=== PATIENT | female | born 1980 | race African-American/Black ===

== ENCOUNTER 2017-05-01 18:52 | Emergency (ER) | payer OTHER ==
[~2017-05-01] VITALS: Ht 180.3 cm; Wt 127.5 kg
[2017-05-01 19:20] VITALS: BP 113/85
[2017-05-01] MEDS ORDERED: oxyCODONE HCL/Acetaminophen 5/325mg ORAL ONE (19:45)
[2017-05-01] MEDS ORDERED: TYLENOL EXTRA500 MG ORAL (20:42)
--- NOTE | 2017-05-01 20:42 | Emergency Room Report ---
History of Present Illness General Chief Complaint: Lower Extremity Injury Source: Patient Present Illness HPI 36-year-old female presents to the emergency department complaining of 10 out of 10 in severity pain to the anterior left knee in addition to the lateral left ankle status post mechanical fall down 4 stairs approximately 4 hours ago. Patient reports history of having her left knee intermittently "give out on her and patient states that all morning she felt as though her legs may give out , then it finally did. Patient denies feeling of instability in the knee at this time. Patient reports some swelling to both the knee and ankle. She denies bruising she denies hitting her head or loss of consciousness. Patient states pain is exacerbated upon walking. Denies numbness tingling or loss of sensation or gross motor movements of the extremities, incontinence of bowel or bladder. Denies CP, Palpitations, LOC, AMS, dizziness, Changes in Vision, Sensation, paresthesias, or a sudden severe headache. Allergies: Coded Allergies: ASPIRIN (Verified Allergy, Unknown, 05/01/17) IBUPROFEN (Verified Allergy, Unknown, 05/01/17) PENICILLINS (Verified Allergy, Unknown, 05/01/17) Patient History Past Medical History: see triage record Past Surgical History: none Pertinent Family History: none Last Menstrual Period: 04/02/17 Now: No Reviewed Nursing Documentation: PMH: Agreed, PSxH: Agreed Nursing Documentation-PMH Hx Hypertension: Yes Hx Asthma: Yes Hx COPD: Yes Hx Seizures: Yes Review of Systems All Other Systems: negative except mentioned in HPI Physical Exam Vital Signs Date Time Temp Pulse Resp B/P (MAP) Pulse Ox O2 Delivery O2 Flow Rate FiO2 05/01/17 19:03 98.2 96 16 113/85 100 Room Air Sp02 EP Interpretation: reviewed, normal General Appearance: no apparent distress, alert, GCS 15, non-toxic Head: normocephalic, atraumatic Eyes: bilateral eye normal inspection, bilateral eye PERRL ENT: hearing grossly normal, normal voice Neck: full range of motion Respiratory: lungs clear, normal breath sounds, speaking full sentences Cardiovascular #1: regular rate, rhythm, normal capillary refill Rectal: deferred Genitourinary: normal inspection, no CVA tenderness Musculoskeletal: back normal, gait/station normal, normal range of motion, tender - TTP to the anteror left knee, and lateral left ankle, there is ttp to the dorsal alteral aspect of the left foot with some soft tissue swelling. all affected joints have FROM, no increased laxity to the ligaments of the knee. Neurologic: alert, oriented x3, responsive, motor strength/tone normal, sensory intact, speech normal Skin: normal color, no rash, warm/dry, well hydrated Lymphatic: no adenopathy Medical Decision Making SHIMA Attanurag Cox is my supervising Physician whom patient management has been discussed with. Diagnostic Impression: Primary Impression: Left ankle sprain Qualified Codes: S93.402A - Sprain of unspecified ligament of left ankle, initial encounter Additional Impression: Knee effusion, left ER Course 36-year-old female presents to the emergency department complaining of 10 out of 10 in severity pain to the anterior left knee in addition to the lateral left ankle status post mechanical fall down 4 stairs approximately 4 hours ago. Patient reports history of having her left knee intermittently "give out on her and patient states that all morning she felt as though her legs may give out , then it finally did. Patient denies feeling of instability in the knee at this time. Patient reports some swelling to both the knee and ankle. She denies bruising she denies hitting her head or loss of consciousness. Patient states pain is exacerbated upon walking. Denies numbness tingling or loss of sensation or gross motor movements of the extremities, incontinence of bowel or bladder. Denies CP, Palpitations, LOC, AMS, dizziness, Changes in Vision, Sensation, paresthesias, or a sudden severe headache. Ddx considered but are not limited to Fracture, dislocation, contusion, Sprain/ Strain/Spasm. Vital signs: are WNL, pt. is afebrile H&PE are most consistent with musculoskeletal injury will perform imaging to r/ o fractures/dislocations. - no increased laxity of the knee joint on physical exam. no obvious deformities other than soft tissue swelling noted on physical exam. ORDERS: - X-ray Left knee 3 views - positive for knee effusion. Negative for fx, Dislocation, or significant soft tissue injury, per preliminary read in ED, and signed by SHIMA Johnson, my supervising physician has reviewed, and agrees with my interpretation. - X-ray Left Ankle 3 views - Negative for fx, Dislocation, or significant soft tissue injury, per preliminary read in ED, and signed by SHIMA Johnson , my supervising physician has reviewed, and agrees with my interpretation - X-ray Left Foot 3 views - Negative for fx, Dislocation, or significant soft tissue injury, per preliminary read in ED, and signed by SHIMA Johnson , my supervising physician has reviewed, and agrees with my interpretation ED INTERVENTIONS: Adriano wrap applied to the left ankle by timber management technician. Pt. remains neurovascularly intact. - Adriano Wrap applied to the left knee by timber management technician. Pt. remains neurovascularly intact. -Patient is provided with crutches and instructed on their use DISCHARGE: At this time pt. is stable for d/c to home. Will provide printed patient care instructions, and any necessary prescriptions. Care plan and follow up instructions have been discussed with the patient prior to discharge. Other X-Ray Diagnostic Results Other X-Ray Diagnostic Results #1: X-Ray ordered: Left Knee # of Views/Limited Vs Complete: 3 View Indication: Pain EP Interpretation: Yes PA Xray: Interpretation reviewed, by supervising MD, and agrees with findings. Interpretation: no dislocation, no soft tissue swelling, other - mild effusion Impression: Other - mild effusion otherwise unremarkable Electronically Signed by: Faith Johnson PA-C Other X-Ray Diagnostic Results #2: X-Ray ordered: Left ankle # of Views/Limited Vs Complete: 3 View Indication: Pain EP Interpretation: Yes PA Xray: Interpretation reviewed, by supervising MD, and agrees with findings. Interpretation: no dislocation, no soft tissue swelling, no fractures Impression: No acute disease Electronically Signed by: Faith Johnson PA-C Other X-Ray Diagnostic Results #3: X-Ray ordered: Left Foot # of Views/Limited Vs Complete: 3 View Indication: Pain EP Interpretation: Yes PA Xray: Interpretation reviewed, by supervising MD, and agrees with findings. Interpretation: no dislocation, no soft tissue swelling, no fractures Impression: No acute disease Electronically Signed by: Faith Johnson PA-C Last Vital Signs Date Time Temp Pulse Resp B/P (MAP) Pulse Ox O2 Delivery O2 Flow Rate FiO2 05/01/17 19:03 98.2 96 16 113/85 100 Room Air Disposition: HOME, SELF-CARE Condition: Stable Scripts [Cast Shoe] No Conflict Check [facility], #1 Prov: Faith Johnson P.Joe 05/01/17 Acetaminophen* (TYLENOL EXTRA STRENGTH*) 500 Mg Tablet 500 MG ORAL Q6H, #30 TAB 0 Refills Prov: Faith Johnson 05/01/17 Referrals: [facility]ERR[facility] (PCP) Patient Instructions: Ankle Sprain, Knee Effusion, [id number] Additional Instructions: Take medications as directed. Follow up with a Primary Care Provider in 3-5 days, even if your symptoms have resolved. --Please review list of primary care clinics, if you do not already have a primary care provider Return sooner to ED if new symptoms occur, or current symptoms become worse. - Please note that this Emergency Department Report was dictated using [employer] operator technology software, occasionally this can lead to erroneous entry secondary to interpretation by the dictation equipment. Faith Johnson May 01, 2017 20:42
[2017-05-01] MEDS ORDERED: [UNRECOGNIZED DRUG - SUPPLY] MC (20:55)
[2017-05-01 21:10] VITALS: BP 113/85
--- NOTE | 2017-05-02 09:48 | Diagnostic Imaging Report ---
Indication: Reason For Exam: PAIN Technique: XRAY Knee 3v L Comparison: None. Findings: The osseous structures are intact. There is no fracture or destruction. The visualized joints are normal. The soft tissues are unremarkable. Impression: Normal.
--- NOTE | 2017-05-02 09:49 | Diagnostic Imaging Report ---
Indication: Reason For Exam: PAIN Technique: XRAY Foot Complete L Comparison: None. Findings: Bones are intact. No fracture. No evidence of bone destruction. There are 2 exostoses on the fifth metatarsal. Impression: Exostoses of the fifth metatarsal. Otherwise negative.
--- NOTE | 2017-05-02 09:50 | Diagnostic Imaging Report ---
Indication: Reason For Exam: PAIN Technique: XRAY Ankle Compl Min 3v L Comparison: None. Findings: The osseous structures are intact. There is no fracture or destruction. The visualized joints are normal. The soft tissues are unremarkable. There are exostoses on the fifth metatarsal. Impression: Exostoses of the fifth metatarsal. Otherwise negative.
== END 2017-05-01 21:10 | disposition home or self-care (01) ==
LOC: EMR 19:35
DX: S93.402A Sprain of unspecified ligament of left ankle, initial encounter (principal); W10.9XXA Fall (on) (from) unspecified stairs and steps, initial encounter; Y92.9 Unspecified place or not applicable; M25.462 Effusion, left knee; I10 Essential (primary) hypertension; J44.9 Chronic obstructive pulmonary disease, unspecified; M89.9 Disorder of bone, unspecified; Z88.6 Allergy status to analgesic agent; Z88.0 Allergy status to penicillin
CPT/HCPCS: 99284

== ENCOUNTER 2017-09-02 19:19 | Emergency (ER) | payer OTHER ==
[~2017-09-02] VITALS: Ht 180.3 cm; Wt 136.1 kg
[~2017-09-02 19:19] MED LIST: TYLENOL EXTRA500 MG ORAL; [UNRECOGNIZED DRUG - SUPPLY] MC
[2017-09-02 20:15] VITALS: BP 142/96
--- NOTE | 2017-09-02 20:35 | Emergency Room Report ---
History of Present Illness General Chief Complaint: Sore Throat Source: Patient Present Illness HPI 37-year-old female presents to the emergency department complaining of 9 out of 10 in severity sore throat with bilateral lymph node swelling. Patient reports that she has been having testing done due to anterior cervical lymphadenopathy that is been causing multiple episodes of sore throat and swelling intermittently times one year. Patient states that her PCP did not give her any medication for pain and she is currently awaiting approval of her CAT scan referral. Patient denies fevers, chills, difficulty breathing. Patient reports vomiting times one day and difficulty keeping down fluids. Patient denies abdominal pain or tenderness. Patient denies and states that "" she is dating a woman ". Patient states that she has only been taking Tylenol for her pain which provides little relief. Patient states that she has had several rounds of antibiotics and that she has very severe allergies as well as asthma. Patient reports that some of the workup her PCP has done is laboratory work, HIV testing, and allergy testing. She denies night sweats or significant changes in weight more than 10 pounds. denies joint pain. Pt. was recently rx'd Glucophage for weight loss. Denies wheezing, swelling of the lips or tongue. Denies CP, Palpitations, LOC, AMS, dizziness, Changes in Vision , Sensation, paresthesias, or a sudden severe headache. Allergies: Coded Allergies: ASPIRIN (Verified Allergy, Unknown, 09/02/17) IBUPROFEN (Verified Allergy, Unknown, 09/02/17) PENICILLINS (Verified Allergy, Unknown, 09/02/17) Patient History Past Medical History: see triage record, other - sialoadenitis- chronic, moderate allergies, Asthma/COPD. . Past Surgical History: none Pertinent Family History: none Last Menstrual Period: now Now: No Immunizations: UTD Reviewed Nursing Documentation: PMH: Agreed; PSxH: Agreed Nursing Documentation-PMH Past Medical History: No History, Except For Hx Hypertension: Yes Hx Asthma: Yes Hx COPD: Yes Hx Seizures: Yes Review of Systems All Other Systems: negative except mentioned in HPI Physical Exam Vital Signs Date Time Temp Pulse Resp B/P (MAP) Pulse Ox O2 Delivery O2 Flow Rate FiO2 09/02/17 20:00 98.2 86 16 142/96 96 Room Air 98.2 Sp02 EP Interpretation: reviewed, normal General Appearance: alert, GCS 15, non-toxic, mild distress Head: normocephalic, atraumatic Eyes: bilateral eye normal inspection, bilateral eye PERRL ENT: hearing grossly normal, normal pharynx - no exudates no erythema, no sublingual tenderness, normal voice, uvula midline, moist mucus membranes, other - no trismus, no FLAG FOOTBALL COACH. Pt. able to swallow, not drooling. Neck: full range of motion, no meningismus, no bony tend, other - LAD bilaterally to the subparotid nodes Respiratory: chest non-tender, lungs clear, normal breath sounds, no respiratory distress, no wheezing, speaking full sentences Cardiovascular #1: regular rate, rhythm Gastrointestinal: normal bowel sounds, non tender, soft Rectal: deferred Genitourinary: normal inspection Musculoskeletal: back normal, gait/station normal, normal range of motion, non- tender Neurologic: alert, oriented x3, responsive, motor strength/tone normal, sensory intact, speech normal, grossly normal Psychiatric: judgement/insight normal Skin: normal color, no rash, warm/dry, well hydrated Medical Decision Making PA Attestation Dr. Ferreira is my supervising Physician whom patient management has been discussed with. Diagnostic Impression: Primary Impression: Lymphadenopathy ER Course 37-year-old female presents to the emergency department complaining of 9 out of 10 in severity sore throat with bilateral lymph node swelling. Patient reports that she has been having testing done due to anterior cervical lymphadenopathy that is been causing multiple episodes of sore throat and swelling intermittently times one year. Patient states that her PCP did not give her any medication for pain and she is currently awaiting approval of her CAT scan referral. Patient denies fevers, chills, difficulty breathing. Patient reports vomiting times one day and difficulty keeping down fluids. Patient denies abdominal pain or tenderness. Patient denies and states that "" she is dating a woman ". Patient states that she has only been taking Tylenol for her pain which provides little relief. Patient states that she has had several rounds of antibiotics and that she has very severe allergies as well as asthma. Patient reports that some of the workup her PCP has done is laboratory work, HIV testing, and allergy testing. She denies night sweats or significant changes in weight more than 10 pounds. denies joint pain. Pt. was recently rx'd Glucophage for weight loss. Denies wheezing, swelling of the lips or tongue. Denies CP, Palpitations, LOC, AMS, dizziness, Changes in Vision , Sensation, paresthesias, or a sudden severe headache. Ddx considered but are not limited to: pharyngitis, strep, FLAG FOOTBALL COACH, ludwigs angina, URI, chronic LAD, MONO, lymphoma, autoimmune disorder just to name a few. Vital signs: are WNL, pt. is afebrile H&PE are most consistent with: lymphadenopathy with sore throat, non-infectious in appearance. - pt has had multiple rounds of abx for her symptoms with no improvement, I do not see continued doses to be of benefit to her. - With current presentation and chronicity of symptoms, I do not suspect impending airway compromise. ORDERS: -Urine : Negative ED INTERVENTIONS: - Zofran PO - IM Solumedrol -Percocet PO. patient is able to tolerate oral fluids, she reports that her symptoms are improving with the above interventions. Discussed with patient to contact her PCP to let him know that she visited the ER regarding her symptoms. Encouraged patient to get a CT scan. Gave patient strict ED return precautions for worsening or new symptoms. DISCHARGE: At this time pt. is stable for d/c to home. Will provide printed patient care instructions, and any necessary prescriptions. Care plan and follow up instructions have been discussed with the patient prior to discharge. Labs Test 09/02/17 21:20 Urine HCG, Qualitative Negative (NEGATIVE) Last Vital Signs Date Time Temp Pulse Resp B/P (MAP) Pulse Ox O2 Delivery O2 Flow Rate FiO2 09/02/17 20:00 98.2 86 16 142/96 96 Room Air 98.2 Disposition: HOME, SELF-CARE Condition: Stable Scripts Ondansetron Odt* (ZOFRAN ODT*) 4 Mg Tab.rapdis 4 MG ORAL Q6H PRN for Nausea & Vomiting, #20 TAB Prov: Faith Johnson P.AJose 09/02/17 Lidocaine HCl 2% Viscous (Lidocaine HCl 2% Viscous) 100 Ml Solution 10 ML ORAL QID, #200 ML Prov: Faith Johnson P.AJose 09/02/17 Hydrocodone Bit/Acetaminophen 7.5-325* (NORCO 7.5-325*) 1 Each Tablet 1 TAB ORAL Q6H PRN for For Pain, #6 TAB 0 Refills Prov: Faith Johnson 09/02/17 Prednisone* (PREDNISONE*) 20 Mg Tablet 40 MG ORAL DAILY for 3 Days, #6 TAB Prov: Faith Johnson 09/02/17 Patient Instructions: Lymphadenopathy, Sore Throat Additional Instructions: Take medications as directed. --- CT imaging as referred by her primary care provider is of high priority. --Recommend rheumatology evaluation to rule out autoimmune disorder. Follow up with a Primary Care Provider in 3-5 days, even if your symptoms have resolved. Return sooner to ED if new symptoms occur, or current symptoms become worse. Do not drink alcohol, drive, or operate heavy machinery while taking norco as this may cause drowsiness. - Please note that this Emergency Department Report was dictated using [employer] collection associate technology software, occasionally this can lead to erroneous entry secondary to interpretation by the dictation equipment. Faith Johnson Sep 02, 2017 20:35
[2017-09-02] MEDS ORDERED: oxyCODONE HCL/Acetaminophen 5/325mg ORAL ONE (20:45)
[2017-09-02] MEDS ORDERED: Solu-MEDROL 125mg Inj IM SCH (20:45)
[2017-09-02 21:25] VITALS: BP 142/96
[2017-09-02] MEDS ORDERED: NORCO 7.5-3251 EACH ORAL (21:53)
[2017-09-02] MEDS ORDERED: LIDOCAINE VISC100 ML ORAL (21:53)
[2017-09-02] MEDS ORDERED: PREDNISONE20 MG ORAL (21:53)
[2017-09-02] MEDS ORDERED: ZOFRAN ODT4 MG ORAL (21:54)
== END 2017-09-02 22:10 | disposition home or self-care (01) ==
LOC: EMR 20:51
DX: R59.1 Generalized enlarged lymph nodes (principal); J44.9 Chronic obstructive pulmonary disease, unspecified; J45.909 Unspecified asthma, uncomplicated; I10 Essential (primary) hypertension; Z88.6 Allergy status to analgesic agent; Z88.0 Allergy status to penicillin
CPT/HCPCS: 81025; 96372; 99284; J2930

== ENCOUNTER 2018-01-14 00:14 | Emergency (ER) | payer OTHER ==
[~2018-01-14] VITALS: Ht 180.3 cm; Wt 118.4 kg
[~2018-01-14 00:14] MED LIST changes: +LIDOCAINE VISC100 ML ORAL; +NORCO 7.5-3251 EACH ORAL; +PREDNISONE20 MG ORAL; +ZOFRAN ODT4 MG ORAL
[2018-01-14 00:50] VITALS: BP 118/83
[2018-01-14] MEDS ORDERED: Dexamethasone 4mg/ml vial IVP ONE (01:00)
[2018-01-14] MEDS ORDERED: DiphenhydrAMINE 50mg/ml Inj IVP ONE (01:00)
--- NOTE | 2018-01-14 01:08 | Emergency Room Report ---
History of Present Illness General Chief Complaint: General Complaint Source: Patient, Family Member, Medical Record Present Illness HPI This a 37-year-old female who was recently diagnosed with lupus. She presents with chief complaint of swelling and welts and her body. She also has a history of allergies which is severe. She is allergic to practically everything on the past. Onset tonight. Itching. Currently on her second packet of Medrol Dosepak. No rest or complaint. Unknown etiology. Denies any other complaints. Allergies: Coded Allergies: ASPIRIN (Verified Allergy, Unknown, 09/02/17) IBUPROFEN (Verified Allergy, Unknown, 09/02/17) PENICILLINS (Verified Allergy, Unknown, 09/02/17) Patient History Past Medical History: see triage record, old chart reviewed, HTN Past Surgical History: other Pertinent Family History: none Social History: Denies: smoking Last Menstrual Period: Dec Now: No Immunizations: other Reviewed Nursing Documentation: PMH: Agreed; PSxH: Agreed Nursing Documentation-PMH Hx Hypertension: Yes Hx Asthma: Yes Hx COPD: Yes Hx Seizures: Yes Review of Systems Eye: Reports: other - swelling; Denies: eye pain, blurred vision ENT: Denies: ear pain, nose congestion, throat swelling Respiratory: Denies: cough, shortness of breath Cardiovascular: Denies: chest pain, palpitations Gastrointestinal: Denies: abdominal pain, diarrhea, nausea, vomiting Musculoskeletal: Denies: back pain, joint pain Skin: Reports: rash Neurological: Denies: headache, numbness Endocrine: Denies: increased thirst, increased urine Hematologic/Lymphatic: Denies: easy bruising All Other Systems: negative except mentioned in HPI Physical Exam Vital Signs Date Time Temp Pulse Resp B/P (MAP) Pulse Ox O2 Delivery O2 Flow Rate FiO2 01/14/18 00:20 98.0 112 16 118/83 96 Room Air 98.1 vitals normal Sp02 EP Interpretation: reviewed, normal General Appearance: well appearing, no apparent distress, alert Head: normocephalic, atraumatic Eyes: bilateral eye PERRL, bilateral eye EOMI, bilateral eye other - puffiness to the eyelids. ENT: hearing grossly normal, normal pharynx Neck: full range of motion, supple, no meningismus Respiratory: chest non-tender, lungs clear, normal breath sounds Cardiovascular #1: regular rate, rhythm, no murmur Gastrointestinal: normal bowel sounds, non tender, no mass, no organomegaly, no bruit, non-distended Musculoskeletal: back normal, gait/station normal, normal range of motion Neurologic: alert, oriented x3 Psychiatric: mood/affect normal Skin: warm/dry, other - better urticaria on torso Medical Decision Making Diagnostic Impression: Primary Impression: Allergic reaction Qualified Codes: T78.40XA - Allergy, unspecified, initial encounter ER Course Patient with allergic reaction. Unknown etiology. No respiratory complaint. No tongue edema. Better after meds. Last Vital Signs Date Time Temp Pulse Resp B/P (MAP) Pulse Ox O2 Delivery O2 Flow Rate FiO2 01/14/18 00:50 98.1 16 118/83 96 Room Air 98.1 01/14/18 00:20 112 Status: improved Disposition: HOME, SELF-CARE Condition: Stable Scripts Diphenhydramine Hcl* (BENADRYL*) 25 Mg Capsule 50 MG ORAL Q6H PRN for Itching, #30 CAP Prov: MARTINEZ ACOSTA M.D. 01/14/18 Referrals: [facility] (PCP) Additional Instructions: Continue with your steroid pack. Follow-up with your DrJose in 2-3 days for recheck. Keep your appointment with your control room technician. You may benefit from a referral to see an director of teaching and learning. Return if symptom worsen. MARTINEZ ACOSTA M.D. Jan 14, 2018 01:08
[2018-01-14] MEDS ORDERED: BENADRYL25 MG ORAL (01:09)
[2018-01-14 01:36] VITALS: BP 112/77
== END 2018-01-14 01:36 | disposition home or self-care (01) ==
LOC: EMR 00:51
DX: T78.40XA Allergy, unspecified, initial encounter (principal); X58.XXXA Exposure to other specified factors, initial encounter; I10 Essential (primary) hypertension; J44.9 Chronic obstructive pulmonary disease, unspecified
CPT/HCPCS: 96361; 96374; 96375; 99284; J1100; J1200; S0028

== ENCOUNTER 2018-07-23 15:55 | Emergency (ER) | payer OTHER ==
[~2018-07-23] VITALS: Ht 180.3 cm; Wt 134.7 kg
[~2018-07-23 15:55] MED LIST changes: +BENADRYL25 MG ORAL
[2018-07-23 16:13] VITALS: BP 115/81
--- NOTE | 2018-07-23 16:16 | NUR ---
ED Nurse Note: pt walked in to ED due to flu like sx for 1 week. pt c/o bodyache, chills and cough. respirations even and non-labored noted. breath sounds clear. no fever at the triage. skin warm to touch. will wait for the further order.
--- NOTE | 2018-07-23 16:29 | Emergency Room Report ---
History of Present Illness General Chief Complaint: Flu Like Symptoms Source: Patient Present Illness HPI 38-year-old female with significant history of SLE currently treated by social service director here complaining of one week of pain and pressure in his sinuses and throat. Patient further complains of dry cough and chills as well as body aches. Patient is asking for pain medication. Denies abdominal pain, nausea vomiting, syncope, chest pain, palpitation, diarrhea and constipation.denies abdominal pain, nausea vomiting, SOB, chest pain, palpitation, diarrhea constipation. Saw her social service director last 1 month ago and is currently being treated with injections for pain Patient saw a social service director last 1 month ago and is currently being treated with injections for pain Allergies: Coded Allergies: ASPIRIN (Verified Allergy, Unknown, 09/02/17) IBUPROFEN (Verified Allergy, Unknown, 09/02/17) PENICILLINS (Verified Allergy, Unknown, 09/02/17) Patient History Past Medical History: see triage record Past Surgical History: unable to obtain Pertinent Family History: none Last Menstrual Period: 07/13/2018 Now: No Reviewed Nursing Documentation: PMH: Agreed; PSxH: Agreed Nursing Documentation-PMH Past Medical History: No History, Except For Hx Hypertension: Yes - RA Hx Asthma: Yes Hx COPD: Yes Hx Diabetes: Yes - Borderline DM Hx Cancer: No Hx Gastrointestinal Problems: No Hx Dialysis: No History Of Psychiatric Problem: No Hx Neurological Problems: No Hx Seizures: Yes Review of Systems All Other Systems: negative except mentioned in HPI Physical Exam Vital Signs Date Time Temp Pulse Resp B/P (MAP) Pulse Ox O2 Delivery O2 Flow Rate FiO2 07/23/18 16:02 98.4 99 16 115/81 98 Room Air Sp02 EP Interpretation: reviewed, normal General Appearance: normal inspection, well appearing, no apparent distress, alert Head: normocephalic, atraumatic Eyes: bilateral eye normal inspection, bilateral eye PERRL ENT: no angioedema, normal voice, uvula midline, moist mucus membranes, pharyngeal erythema, other - Maxillary sinus tender to palpationmaxillary sinus tenderness to palpation Neck: normal inspection, full range of motion, supple Respiratory: normal inspection, chest non-tender, lungs clear, no rhonchi, no wheezing Cardiovascular #1: normal inspection, regular rate, rhythm, no gallop, no murmur Gastrointestinal: normal inspection, soft Musculoskeletal: normal inspection, back normal Psychiatric: normal inspection, judgement/insight normal Skin: normal inspection, normal color, no rash, warm/dry Lymphatic: normal inspection, no adenopathy Medical Decision Making PA Attestation Diagnosis treatment plans and treatment plan reviewed and discussed with my supervising physician Dr. Horn Diagnostic Impression: Primary Impression: Sinusitis ER Course 38-year-old female with significant history of SLE currently treated by social service director here complaining of one week of pain and pressure in his sinuses and throat. Patient further complains of dry cough and chills as well as body aches. Patient is asking for pain medication. Denies abdominal pain, nausea vomiting, syncope, chest pain, palpitation, diarrhea and constipation.denies abdominal pain, nausea vomiting, SOB, chest pain, palpitation, diarrhea constipation. Saw her social service director last 1 month ago and is currently being treated with injections for pain Patient saw a social service director last 1 month ago and is currently being treated with injections for pain Ddx considered but are not limited to sinusitis, bronchitis, laryngitis, PNA Vital signs: are WNL, pt. is afebrile H&PE are most consistent with sinusitis ORDERS: azithromycin, tesselon pearls, tyelnol ED INTERVENTIONS: None required at this time. DISCHARGE: At this time pt. is stable for d/c to home. Will provide printed patient care instructions, and any necessary prescriptions. Care plan and follow up instructions have been discussed with the patient prior to discharge. Last Vital Signs Date Time Temp Pulse Resp B/P (MAP) Pulse Ox O2 Delivery O2 Flow Rate FiO2 07/23/18 16:13 99 16 Room Air 07/23/18 16:13 98.4 115/81 98 Disposition: HOME, SELF-CARE Condition: Stable Scripts Acetaminophen* (TYLENOL EXTRA STRENGTH*) 500 Mg Tablet 500 MG ORAL Q6H PRN for Mild Pain/Temp > 100.5, #30 TAB 0 Refills Prov: Brett Jerome 07/23/18 Benzonatate (Tessalon Perle) 100 Mg Capsule 100 MG ORAL THREE TIMES A DAY, #21 PERLE Prov: Brett Jerome 07/23/18 Azithromycin* (ZITHROMAX*) 250 Mg Tablet 250 MG ORAL DAILY, #6 TAB 0 Refills Take two tables once daily for 1 day, then one tablet once daily for 4 days. Prov: Brett Jerome 07/23/18 Patient Instructions: Sinusitis, Adult, [id number] Additional Instructions: Take antibiotic as directed, follow up with primary Dr and social service director for pain medications as many pain medications interact with your SLE medication. Brett Jerome Jul 23, 2018 16:29
[2018-07-23] MEDS ORDERED: ZITHROMAX250 MG ORAL (16:30)
[2018-07-23] MEDS ORDERED: TESSALON PERLE100 M2 ORAL (16:30)
[2018-07-23] MEDS ORDERED: TYLENOL EXTRA500 MG ORAL (16:30)
[2018-07-23 16:36] VITALS: BP 121/74
--- NOTE | 2018-07-23 16:37 | NUR ---
ER DISCHARGE NOTE: Patient is cleared to be discharged per ERMD, pt is aox4, on room air, with stable vital signs. pt was given dc and prescription instructions, pt was able to verbalize understanding, pt id band removed. pt is able to ambulate with steady gait. pt took all belongings.
== END 2018-07-23 16:38 | disposition home or self-care (01) ==
LOC: EMR 16:29
DX: J32.9 Chronic sinusitis, unspecified (principal); Z88.6 Allergy status to analgesic agent; Z88.0 Allergy status to penicillin; I10 Essential (primary) hypertension; M06.9 Rheumatoid arthritis, unspecified; J44.9 Chronic obstructive pulmonary disease, unspecified
CPT/HCPCS: 99283

== ENCOUNTER 2019-02-27 20:27 | Emergency (ER) | payer OTHER ==
[~2019-02-27] VITALS: Ht 177.8 cm; Wt 136.1 kg
[~2019-02-27 20:27] MED LIST changes: +TESSALON PERLE100 M2 ORAL; +ZITHROMAX250 MG ORAL
[2019-02-27] MEDS ORDERED: FERROUS SULFAT325 MG ORAL (20:36)
[2019-02-27] MEDS ORDERED: BENAZEPRIL HCL10 MG ORAL (20:36)
[2019-02-27] MEDS ORDERED: LATUDA40 MG PO (20:36)
[2019-02-27] MEDS ORDERED: PREDNISONE2.5 MG ORAL (20:36)
[2019-02-27] MEDS ORDERED: KEPPRA500 MG ORAL (20:36)
[2019-02-27] MEDS ORDERED: GABAPENTIN600 MG ORAL (20:36)
[2019-02-27] MEDS ORDERED: FOLIC ACID1 MG ORAL (20:36)
--- NOTE | 2019-02-27 20:43 | NUR ---
ED Nurse Note: Pt ambulated to ED from home c/o flu-like symptoms, fever, wet-productive cough, night sweats and body aches for several days. Pt is A&Ox4, VSS except for temp of 100.4, reports 10/10 generalized body pain
[2019-02-27 20:45] VITALS: BP 147/75
--- NOTE | 2019-02-27 20:59 | Emergency Room Report ---
History of Present Illness General Chief Complaint: Flu Like Symptoms Source: Patient Present Illness HPI Patient is 38-year-old female presents after increased congestion and fever. She reports having intermittent episodes of vomiting. She did prior history of diabetes as well as asthma. She reports quitting smoking yesterday. She states that she had been having increased body aches and chills. Reports having some nausea as well as some bilious vomiting. Allergies: Coded Allergies: ASPIRIN (Verified Allergy, Unknown, 09/02/17) IBUPROFEN (Verified Allergy, Unknown, 09/02/17) PENICILLINS (Verified Allergy, Unknown, 09/02/17) Patient History Past Medical History: see triage record Last Menstrual Period: 02/16/19 Now: No Reviewed Nursing Documentation: PMH: Agreed; PSxH: Agreed Nursing Documentation-PMH Past Medical History: No History, Except For Hx Hypertension: Yes - RA Hx Asthma: Yes Hx COPD: Yes Hx Diabetes: Yes - Borderline DM Hx Cancer: No Hx Gastrointestinal Problems: No Hx Dialysis: No Hx Neurological Problems: No Hx Seizures: Yes Review of Systems All Other Systems: negative except mentioned in HPI Physical Exam Vital Signs Date Time Temp Pulse Resp B/P (MAP) Pulse Ox O2 Delivery O2 Flow Rate FiO2 02/27/19 20:30 100.4 116 22 147/75 (99) 94 Room Air Sp02 EP Interpretation: reviewed, normal General Appearance: normal inspection, well appearing, no apparent distress, alert, GCS 15 Head: atraumatic ENT: normal ENT inspection, hearing grossly normal, normal voice Neck: normal inspection, full range of motion, supple, no bony tend Respiratory: normal inspection, lungs clear, normal breath sounds, no respiratory distress, no retraction, no wheezing Cardiovascular #1: regular rate, rhythm, no edema Gastrointestinal: normal inspection, normal bowel sounds, non tender, soft, no guarding, no hernia Genitourinary: no CVA tenderness Musculoskeletal: normal inspection, back normal, normal range of motion Neurologic: normal inspection, alert, oriented x3, responsive, food demonstrator III-XII nml as tested, speech normal Psychiatric: normal inspection, judgement/insight normal, mood/affect normal Skin: no rash Medical Decision Making Diagnostic Impression: Primary Impression: Bronchitis Additional Impression: Urinary tract infection ER Course Patient presented for cough and body aches. Differential diagnosis included but was not limited to bronchitis, pneumonia, pulmonary embolism, pericarditis, asthma, foreign body.Because of patient's febrile illness laboratory testing was ordered. Patient was blood test showed normal white blood count with some evidence of urinary infection. Patient was given IV antibiotics. Patient given prescription for oral antibiotics due to urinary infection.The patient is advised to follow up with primary care doctor in 1-2 days. Patient is advised to return if any worsening condition or if any changes in status that are concerning. This report is dictated with [employer] electrotype molder software which may occasionally lead to discrepancies related to use of this software. Labs Test 02/27/19 20:50 02/27/19 21:10 Urine Color Yellow Urine Appearance Slightly cloudy Urine pH 6 (4.5-8.0) Urine Specific [place] 1.020 (1.005-1.035) Urine Protein 2+ (NEGATIVE) Urine Glucose (UA) Negative (NEGATIVE) Urine Ketones 4+ (NEGATIVE) Urine Blood 4+ (NEGATIVE) Urine Nitrite Negative (NEGATIVE) Urine Bilirubin Negative (NEGATIVE) Urine Urobilinogen 1 MG/DL (0.0-1.0) Urine Leukocyte Esterase 1+ (NEGATIVE) Urine RBC 5-10 /HPF (0 - 2) Urine WBC 10-15 /HPF (0 - 2) Urine Squamous Epithelial Cells Many /LPF (NONE/OCC) Urine Bacteria Many /HPF (NONE) Urine HCG, Qualitative Negative (NEGATIVE) White Blood Count 7.4 K/UL (4.8-10.8) Red Blood Count 4.39 M/UL (4.20-5.40) Hemoglobin 12.4 G/DL (12.0-16.0) Hematocrit 37.0 % (37.0-47.0) Mean Corpuscular Volume 84 FL (80-99) Mean Corpuscular Hemoglobin 28.2 PG (27.0-31.0) Mean Corpuscular Hemoglobin Concent 33.5 G/DL (32.0-36.0) Red Cell Distribution Width 12.6 % (11.6-14.8) Platelet Count 239 K/UL (150-450) Mean Platelet Volume 8.3 FL (6.5-10.1) Neutrophils (%) (Auto) 48.5 % (45.0-75.0) Lymphocytes (%) (Auto) 30.8 % (20.0-45.0) Monocytes (%) (Auto) 18.3 % (1.0-10.0) Eosinophils (%) (Auto) 0.4 % (0.0-3.0) Basophils (%) (Auto) 2.0 % (0.0-2.0) Sodium Level 136 MMOL/L (136-145) Potassium Level 3.1 MMOL/L (3.5-5.1) Chloride Level 98 MMOL/L (98-107) Carbon Dioxide Level 23 MMOL/L (21-32) Anion Gap 15 mmol/L (5-15) Blood Urea Nitrogen 7 mg/dL (7-18) Creatinine 0.8 MG/DL (0.55-1.30) Estimat Glomerular Filtration Rate > 60 mL/min (>60) Glucose Level 106 MG/DL (74-106) Calcium Level 9.2 MG/DL (8.5-10.1) Total Bilirubin 0.5 MG/DL (0.2-1.0) Aspartate Amino Transf (AST/SGOT) 44 U/L (15-37) Alanine Aminotransferase (ALT/SGPT) 37 U/L (12-78) Alkaline Phosphatase 61 U/L (46-116) Troponin I 0.000 ng/mL (0.000-0.056) Total Protein 8.5 G/DL (6.4-8.2) Albumin 3.5 G/DL (3.4-5.0) Globulin 5.0 g/dL Albumin/Globulin Ratio 0.7 (1.0-2.7) Last Vital Signs Date Time Temp Pulse Resp B/P (MAP) Pulse Ox O2 Delivery O2 Flow Rate FiO2 02/27/19 20:45 100.4 80 22 147/75 94 Room Air Status: improved Disposition: HOME, SELF-CARE Condition: Stable Scripts Prednisone* (PREDNISONE*) 20 Mg Tablet 40 MG ORAL DAILY, #10 TAB Prov: Richi Cox MD 02/27/19 Metoclopramide Hcl* (REGLAN*) 5 Mg Tablet 5 MG ORAL EVERY 6 HOURS, #20 TAB Prov: Richi Cox MD 02/27/19 Levofloxacin (LEVOFLOXACIN*) 500 Mg Tablet 500 MG ORAL DAILY, #7 TAB Prov: Richi Cox MD 02/27/19 Richi Cox MD Feb 27, 2019 20:59
[2019-02-27] MEDS ORDERED: Albuterol/Ipratropium 3ml neb HHN ONE (21:00)
[2019-02-27 21:13] LABS: APPEARANCE,URINE SLIGHTLY CLOUDY; BILIRUBIN, URINE NEGATIVE (NEGATIVE); GLUCOSE, URINE (UA) NEGATIVE (NEGATIVE); KETONES,URINE 4+ (NEGATIVE); LEUKOCYTE ESTERASE ,URINE 1+ (NEGATIVE); NITRITE,URINE NEGATIVE (NEGATIVE); PH,URINE 6 (4.5-8.0); PROTEIN,URINE 2+ (NEGATIVE); UROBILINOGEN,URINE 1 MG/DL (0.0-1.0)
[2019-02-27 21:15] LABS: COLOR,URINE YELLOW
[2019-02-27 21:41] LABS: EOSINOPHILS % (AUTO) 0.4 % (0.0-3.0); HEMOGLOBIN 12.4 G/DL (12.0-16.0); LYMPHOCYTES % (AUTO) 30.8 % (20.0-45.0); MEAN CORPUSCULAR VOLUME 84 FL (80-99); MONOCYTES % (AUTO) 18.3 % (1.0-10.0); NEUTROPHILS % (AUTO) 48.5 % (45.0-75.0); PLATELET COUNT 239 K/UL (150-450); RED BLOOD COUNT 4.39 M/UL (4.20-5.40); RED CELL DISTRIBUTION WIDTH 12.6 % (11.6-14.8); WHITE BLOOD COUNT 7.4 K/UL (4.8-10.8)
[2019-02-27 22:00] LABS: ANION GAP 15 mmol/L (5-15); BLOOD UREA NITROGEN 7 mg/dL (7-18); CALCIUM 9.2 MG/DL (8.5-10.1); CARBON DIOXIDE 23 MMOL/L (21-32); CHLORIDE 98 MMOL/L (98-107); CREATININE 0.8 MG/DL (0.55-1.30); POTASSIUM 3.1 MMOL/L (3.5-5.1); SODIUM 136 MMOL/L (136-145)
[2019-02-27] MEDS ORDERED: Levofloxacin 500mg tab ORAL ONE (22:00)
[2019-02-27 22:05] LABS: ALANINE AMINOTRANSFERASE 37 U/L (12-78); ALBUMIN 3.5 G/DL (3.4-5.0); ALBUMIN/GLOBULIN RATIO 0.7 (1.0-2.7); ALKALINE PHOSPHATASE 61 U/L (46-116); ASPARTATE AMINO TRANSFERASE 44 U/L (15-37); BILIRUBIN,TOTAL 0.5 MG/DL (0.2-1.0)
[2019-02-27] MEDS ORDERED: REGLAN5 MG ORAL (22:15)
[2019-02-27] MEDS ORDERED: LEVOFLOXACIN500 MG ORAL (22:15)
[2019-02-27] MEDS ORDERED: PREDNISONE20 MG ORAL (22:16)
[2019-02-27 22:25] VITALS: BP 147/75
--- NOTE | 2019-02-27 22:25 | NUR ---
ER DISCHARGE NOTE: Patient is cleared to be discharged per ERMD, pt is aox4, on room air, with stable vital signs. pt was given dc and prescription instructions, pt was able to verbalize understanding, pt id band and iv site removed without complications. pt is able to ambulate with steady gait. pt took all belongings.
--- NOTE | 2019-02-28 09:36 | Diagnostic Imaging Report ---
Indication: Reason For Exam: SOB Technique: Single AP view of the chest. Comparison: None. Findings: The cardiomediastinal silhouette is within normal limits. There is a patchy left infrahilar airspace opacity, which partially obscures left heart border. No pleural effusion or pneumothorax. Osseous structures demonstrate no acute abnormality. IMPRESSION: Patchy left midlung airspace opacity concerning for pneumonia.
== END 2019-02-27 22:25 | disposition home or self-care (01) ==
LOC: EMR 21:10
DX: J40 Bronchitis, not specified as acute or chronic (principal); N39.0 Urinary tract infection, site not specified; J44.9 Chronic obstructive pulmonary disease, unspecified; R73.03 Prediabetes; Z88.6 Allergy status to analgesic agent; Z88.0 Allergy status to penicillin; Z88.8 Allergy status to other drugs, medicaments and biological substances; Z87.891 Personal history of nicotine dependence
CPT/HCPCS: 36415; 71045; 80053; 81001; 81025; 84484; 85025; 86710; 87040; 87086; 93005; 94640; Z7502; 99284; J7620